=== PATIENT | male | born 1960 | race Caucasian/White ===

== ENCOUNTER 2017-07-31 13:50 | Outpatient (CLI) | payer BC ==
[2017-07-31 15:43] LABS: Hemoglobin 15.5 g/dL (14.0-18.0); Mean Corpuscular HGB CONC 32.3 g/dL (32.0-36.0); Mean Corpuscular Hemoglobin 30.2 pg (27.0-31.0); Mean Corpuscular Volume 93.4 fl (80.0-94.0); Platelet Count 291 thou/uL (130-400); RBC Distribution Width 12.1 % (11.5-14.5); Red Blood Cell (RBC) Count 5.14 mill/uL (4.70-6.10); White Blood Cell (WBC) Count 11.6 thou/uL (4.8-10.8)
[2017-07-31 16:06] LABS: Anion Gap 16 mmol/L (10-20); BUN (Urea Nitrogen) 22 mg/dL (8.4-25.7); Calc. Creatinine Clearance 0 mL/min (70-130); Calcium 9.3 mg/dL (7.8-10.44); Carbon Dioxide 24 mmol/L (22-29); Chloride 103 mmol/L (98-107); Estimated GFR-MDRD 77; Glucose 156 mg/dL (70-105); Potassium 4.2 mmol/L (3.5-5.1); Sodium 139 mmol/L (136-145)
== END 2017-07-31 13:51 | disposition home or self-care (01) ==
LOC: LABBT 13:50
PROVIDERS: ATTEND Neurological Surgery
DX: Z01.812 Encounter for preprocedural laboratory examination (principal); M54.12 Radiculopathy, cervical region
CPT/HCPCS: 80048; 85027; 93005; 93010

== ENCOUNTER 2017-08-03 07:13 | Day surgery (SDC) | payer BC ==
[2017-07-31 14:11] VITALS: BMI 46.3
[2017-08-03] MEDS ORDERED: Fentanyl 100 MCG/2 ML VIAL ONE ×2 (09:17→12:13)
[2017-08-03] MEDS ORDERED: Levofloxacin 500 mg/D5W 100 ml Premix Bag ONE (09:57)
[2017-08-03] MEDS ORDERED: Clindamycin/D5W 900 mg/50 ml Premix Bag ONE (09:57)
[2017-08-03] MEDS ORDERED: Sodium Chloride 0.9% 10 ML ONE (10:16)
[2017-08-03] MEDS ORDERED: Fentanyl 250 MCG/5 ML VIAL ONE (10:33)
[2017-08-03] MEDS ORDERED: Midazolam HCl 2 mg/2 ml Vial ONE (10:33)
[2017-08-03] MEDS ORDERED: Promethazine HCl 25 MG/ML VIAL ONE (10:34)
[2017-08-03] MEDS ORDERED: hydrALAZINE 20 MG/ML VIAL ONE (11:58)
[2017-08-03] MEDS ORDERED: Promethazine HCl 25 MG/ML VIAL SLOW IVP PRN (12:04)
[2017-08-03] MEDS ORDERED: Ondansetron HCl/PF 4 MG/2 ML Vial IVP PRN (12:04)
[2017-08-03] MEDS ORDERED: Morphine Sulfate 2 MG/ML SYRINGE SLOW IVP PRN (12:04)
--- NOTE | 2017-08-03 12:38 | OP ---
DATE OF PROCEDURE: 08/03/2017 SURGEON: Nabeel Kamara M.D. WINDOW TINTER: Vladislav Alvarado PA-C PROCEDURE: Anterior cervical discectomy C6-7, interbody arthrodesis, intravertebral biomechanical de vice, local morselized autograft, demineralized bone matrix, anterior titanium instrumentation C6-7. PROCEDURE IN DETAIL: The patient was brought to the operating room, intubated, positioned supine in modest extension on a gel-filled donut. Incision was made in the right precervical area and dissecti ng medial sternocleidomastoid muscle, identified the anterior cervical spine and our level was confir med by x-ray. We placed distraction across the disc space, incised the intervertebral disk, and usin g the operating microscope and microdissection techniques, completely removed the C6-7 disc. A left- sided disc herniation was identified as expected and this was completely decompressed. The bony endp lates were then decorticated for the purpose of arthrodesis and appropriately sized intravertebral bi omechanical PEEK device was brought into the field, filled with demineralized bone matrix and local m orselized autograft, and tapped into place securely at C6-7. Next, an anterior plate was brought in the field and secured to C6 and C7 using two 14 mm screws at each level. The wound was then extensiv fide irrigated, immaculate hemostasis was secured, and the wound was closed in anatomic layers.
[2017-08-03] MEDS ORDERED: Calcium Chloride 1 GM/10 ML Abboject SYRINGE ONE (16:59)
[2017-08-03] MEDS ORDERED: Lidocaine 1% PF 5 ML VIAL ONE (16:59)
[2017-08-03] MEDS ORDERED: ePHEDrine/0.9% NaCl/PF SYRINGE 50 mg/10 ml ONE (16:59)
[2017-08-03] MEDS ORDERED: PHENYLEPHRINE-NS 100 MCG/ML 10 ML SYRINGE ONE (16:59)
[2017-08-03] MEDS ORDERED: Ondansetron HCl/PF 4 MG/2 ML Vial ONE (16:59)
[2017-08-03] MEDS ORDERED: Labetalol 100 MG/20 ML MDV ONE (16:59)
[2017-08-03] MEDS ORDERED: Dexamethasone 20 MG/5 ML VIAL ONE (16:59)
[2017-08-03] MEDS ORDERED: Glycopyrrolate 0.2 MG/ML 5 ML SYRINGE ONE (16:59)
[2017-08-03] MEDS ORDERED: Esmolol 100 MG/10 ML VIAL ONE (16:59)
== END 2017-08-03 14:30 | disposition home or self-care (01) ==
LOC: SDC 07:13
PROVIDERS: ATTEND Neurological Surgery
PROC: 0RT30ZZ Resection of Cervical Vertebral Disc, Open Approach (ICD-10-PCS; principal; 2017-08-03)
PROC: 0RG10A0 Fusion of Cervical Vertebral Joint with Interbody Fusion Device, Anterior Approach, Anterior Column, Open Approach (ICD-10-PCS; principal; 2017-08-03)
DX: M50.123 Cervical disc disorder at C6-C7 level with radiculopathy; J30.2 Other seasonal allergic rhinitis; I10 Essential (primary) hypertension; Z79.84 Long term (current) use of oral hypoglycemic drugs; Z88.0 Allergy status to penicillin; Z79.82 Long term (current) use of aspirin; E11.9 Type 2 diabetes mellitus without complications; Z79.899 Other long term (current) drug therapy
CPT/HCPCS: 76001; 96374; A4216; C1713; C1776; J0360; J1100; J1956; J2001; J2250; J2405; J2550; J3010; J3490

== ENCOUNTER 2017-08-19 10:33 | Outpatient (CLI) | payer BC ==
--- NOTE | 2017-08-19 12:00 | RAD ---
CERVICAL SPINE THREE VIEWS: 08/19/2017 HISTORY: Followup from surgery. Cervical radiculopathy. COMPARISON: None available. TECHNIQUE: AP, lateral, and Swimmer's views of the cervical spine are provided. FINDINGS: C1 of the cervicothoracic junction is seen on the lateral and Swimmer's views of the cervical spine. There are post surgical changes related to anterior cervical fusion at the C6-C7 level with anterior plate and screws transfixing this level. An intradiskal prosthesis is noted in place. No fracture subluxation is seen on provided images. There is mild osteophyte formation seen at the C5-C6 level. A focus of gas is seen anterior to this level as well, and there is slight prominence of the prevert ebral soft tissues. These findings may be attributable to recent post surgical change, but clinical correlation is recommended. No other findings. IMPRESSION: Post surgical changes at the C6-C7 level, related to anterior cervical fusion. There is gas density and slight prominence of the prevertebral soft tissues at this level, which may be attributable to th e recent post surgical changes, Clinical correlation is recommended, and follow-up evaluation is also suggested. POS: [facility]
== END 2017-08-19 10:34 | disposition home or self-care (01) ==
LOC: TBSIIMAG 10:33
PROVIDERS: ATTEND Neurological Surgery
DX: M54.12 Radiculopathy, cervical region (principal); Z98.1 Arthrodesis status
CPT/HCPCS: 72040

== ENCOUNTER 2017-09-01 17:16 | Emergency (ER) | payer BC ==
[2017-09-01 17:48] LABS: #Basophils 0.1 thou/uL (0.0-0.2); #Eosinphils 0.1 thou/uL (0.0-0.7); #Lymphocytes 3.9 thou/uL (1.20-3.40); #Monocytes 1.4 thou/uL (0.11-0.59); #Neutrophils 13.8 thou/uL (1.40-6.50); %Basophils 0.5 % (0.0-1.0); %Eosinophils 0.7 % (0.0-10.0); %Monocytes 7.3 % (0.0-10.0); %Neutrophils 71.5 % (42.0-75.0); Hemoglobin 14.7 g/dL (14.0-18.0); Mean Corpuscular HGB CONC 34.3 g/dL (32.0-36.0); Mean Corpuscular Hemoglobin 31.2 pg (27.0-31.0); Mean Platelet Volume 6.5 fL (7.4-10.4); Platelet Count 365 thou/uL (130-400); RBC Distribution Width 12.3 % (11.5-14.5); Red Blood Cell (RBC) Count 4.71 mill/uL (4.70-6.10); White Blood Cell (WBC) Count 19.3 thou/uL (4.8-10.8)
[2017-09-01 18:11] LABS: ALT (SGPT) 11 U/L (8-55); AST (SGOT) 11 U/L (5-34); Albumin 4.1 g/dL (3.5-5.0); Alkaline Phosphatase 81 U/L (40-150); Anion Gap 15 mmol/L (10-20); BUN (Urea Nitrogen) 28 mg/dL (8.4-25.7); Bilirubin, Total 0.3 mg/dL (0.2-1.2); Calc. Creatinine Clearance 0 mL/min (70-130); Calcium 9.5 mg/dL (7.8-10.44); Carbon Dioxide 26 mmol/L (22-29); Chloride 100 mmol/L (98-107); Estimated GFR-MDRD 65; Globulin 3.4 g/dL (2.4-3.5); Glucose 225 mg/dL (70-105); Potassium 3.9 mmol/L (3.5-5.1); Protein, Total 7.5 g/dL (6.0-8.3); Sodium 137 mmol/L (136-145)
[2017-09-01 18:14] LABS: CKMB 0.5 ng/mL (0-6.6); Troponin I 0.015 ng/mL (< 0.028)
--- NOTE | 2017-09-01 18:31 | RAD ---
PORTABLE CHEST: History: Chest pain. FINDINGS: Heart size is borderline considering portable technique and inspiration. The lungs are clear of infil trates. No signs of failure. Post-operative changes of the cervical spine are seen. IMPRESSION: Borderline heart size. POS: H
== END 2017-09-01 19:04 | disposition home or self-care (01) ==
LOC: ERS 17:16
DX: G89.18 Other acute postprocedural pain (principal); M54.2 Cervicalgia; E11.9 Type 2 diabetes mellitus without complications; E78.5 Hyperlipidemia, unspecified; I10 Essential (primary) hypertension; F32.9 Major depressive disorder, single episode, unspecified; Z79.899 Other long term (current) drug therapy; Z79.82 Long term (current) use of aspirin; Z79.84 Long term (current) use of oral hypoglycemic drugs
CPT/HCPCS: 71045; 72040; 80053; 82553; 84484; 85025; 93005

== ENCOUNTER 2017-09-10 13:30 | Outpatient (CLI) | payer BC ==
--- NOTE | 2017-09-10 14:50 | CT ---
CT CERVICAL SPINE WITHOUT CONTRAST: HISTORY: Status post surgery one month ago. Right-sided pain for two weeks. COMPARISON: Cervical spine series from 09/01/2017. TECHNIQUE: Multiple contiguous axial images were obtained in a CT of the cervical spine without contrast. Sagit cristian and coronal reformats were performed. FINDINGS: The patient is status post anterior fusion of C6 and C7 with a plate and screws. A disk spacer is se en at the anterior aspect of the intervening disk space. There is slight retrodisplacement of the C6 vertebral body in relation to the vertebral body above and below this level. No perihardware lucenc y or fracture is identified. Mild prevertebral soft tissue swelling is seen in the region of the ijeoma te and screws, without a focal fluid collection. There appears to be mild to moderate bony narrowing of the central canal, at the C6-C7 level. There appears to be moderate bilateral neural foraminal stenosis at the C6-C7 level, right greater than lef t. No other areas of neural foramina or central canal stenosis are seen throughout the cervical spin e. IMPRESSION: Postsurgical changes of the cervical spine as above. There appears to be bony narrowing of the neura l foramina and central canal at C6-C7. This examination is limited for evaluation of the central can al and neural foramina, and an MRI of the cervical spine is recommended for better evaluation. POS: [facility]
== END 2017-09-10 13:31 | disposition home or self-care (01) ==
LOC: TBSIIMAG 13:30
PROVIDERS: ATTEND Neurological Surgery
DX: M50.30 Other cervical disc degeneration, unspecified cervical region (principal); Z98.890 Other specified postprocedural states
CPT/HCPCS: 72125

== ENCOUNTER 2017-12-04 14:08 | Outpatient (CLI) | payer BC ==
--- NOTE | 2017-12-04 15:24 | MRI ---
MRI LUMBAR SPINE: History: Weakness, R53.1 Technique: Multiplanar, multisequence noncontrast enhanced MRI images lumbar spine obtained. FINDINGS: T12-L1: Unremarkable. L1-2: Mild facet hypertrophy is seen. No significant degree of central stenosis is seen. L2-3: Mild facet hypertrophy is seen. The central canal and neural foramen are patent. L3-4: Mild to moderate bilateral facet hypertrophy is seen. Ligamentum flavum hypertrophic is seen. N o evidence of significant central stenosis seen. The neural foramen are patent. L4-5: Disc desiccation is seen. There is bilateral facet and ligamentum flavum hypertrophy. There is a mild broad based disc bulge. Some fluid seen in the L4-5 facet joints. This results in mild but not significant degree of central stenosis. Mild to moderate bilateral neural foraminal narrowing also s een. L5-S1: There is a broad based disc bulge. Bilateral facet hypertrophy is seen. A small amount of flui d is seen in the facet joints. IMPRESSION: Multilevel facet hypertrophic changes. The most degree of facet hypertrophy is at the L4-5 level. POS: [facility]
== END 2017-12-04 14:09 | disposition home or self-care (01) ==
LOC: TBSIIMAG 14:08
PROVIDERS: ATTEND Psychiatry & Neurology Neurology
DX: R53.1 Weakness (principal); M48.8X6 Other specified spondylopathies, lumbar region
CPT/HCPCS: 72148

== ENCOUNTER 2023-09-18 06:06 | Day surgery (SDC) | payer BC ==
[2023-09-17 13:55] VITALS: BMI 39.4
[2023-09-18] MEDS ORDERED: PROPOFOL 40 ML ONE (08:09)
[2023-09-18] MEDS ORDERED: Lidocaine 1% PF 5 ML VIAL ONE (08:59)
== END 2023-09-18 09:16 | disposition home or self-care (01) ==
LOC: SDC 06:06
PROVIDERS: ATTEND Internal Medicine Gastroenterology
PROC: 0DJD8ZZ Inspection of Lower Intestinal Tract, Via Natural or Artificial Opening Endoscopic (ICD-10-PCS; principal; 2023-09-18)
DX: Z12.11 Encounter for screening for malignant neoplasm of colon (principal); K52.9 Noninfective gastroenteritis and colitis, unspecified; E66.9 Obesity, unspecified; E11.9 Type 2 diabetes mellitus without complications; I10 Essential (primary) hypertension; E78.5 Hyperlipidemia, unspecified; F32.A Depression, unspecified; F41.9 Anxiety disorder, unspecified; G47.00 Insomnia, unspecified; Z88.0 Allergy status to penicillin
CPT/HCPCS: J2704

== ENCOUNTER 2023-09-22 08:19 | Day surgery (SDC) | payer BC ==
[2023-09-18 14:45] VITALS: BMI 40.8
[2023-09-22] MEDS ORDERED: Lidocaine 1% PF 5 ML VIAL ONE (08:41)
[2023-09-22] MEDS ORDERED: PROPOFOL 40 ML ONE (08:41)
[2023-09-22] MEDS ORDERED: PHENYLEPHRINE-NS 100 MCG/ML 10 ML SYRINGE ONE (10:53)
[2023-09-22] MEDS ORDERED: GLYCOPYRROLATE/PF 0.2 MG/ML VIAL ONE (10:53)
[2023-09-22] MEDS ORDERED: PROPOFOL 20 ML ONE (12:05)
== END 2023-09-22 13:08 | disposition home or self-care (01) ==
LOC: SDC 08:19
PROVIDERS: ATTEND Internal Medicine Gastroenterology
PROC: 0DBL8ZZ Excision of Transverse Colon, Via Natural or Artificial Opening Endoscopic (ICD-10-PCS; principal; 2023-09-22)
DX: Z12.11 Encounter for screening for malignant neoplasm of colon (principal); D12.3 Benign neoplasm of transverse colon; K64.9 Unspecified hemorrhoids; I10 Essential (primary) hypertension; E11.9 Type 2 diabetes mellitus without complications; E66.9 Obesity, unspecified; Z68.41 Body mass index [BMI] 40.0-44.9, adult; Z88.0 Allergy status to penicillin
CPT/HCPCS: 88305; J2704; J3490